=== PATIENT | female | born 1980 | race Caucasian/White ===

== ENCOUNTER 2023-02-09 07:43 | Outpatient (OUT) | payer OTHER, SELFPAY ==
--- NOTE | 2023-02-09 08:00 | US_ITS ---
Patient: GEORGES VEGAS Exam Date: 02/09/2023 : 1980 Gender:F Ordering : DR Thuan Nguyễn . Admission #: [id number] Family : DR Olman Torres . Order #: [id number] CLICK HERE TO VIEW EXAM RADIOLOGY REPORT PROCEDURE: MM TOMOSYNTHESIS DIAGNOSTIC RT, 02/09/2023, 08:02 US BREAST RT LIMITED, 02/09/2023, 08:38 COMPARISON: MG MAMM RT DIAG FU, 10/25/2022. MG MAMM SCREEN 3D FRENCH CAD, 10/19/2022. MG MAMM SCREEN 3D FRENCH CAD, 10/08/2021. INDICATIONS: Abnormal Mammogram Calculator Name NCI Breast Cancer Risk Assessment Tool 5 Year Breast Cancer Risk 0.40% Lifetime Breast Cancer Risk 7.30% Personal Breast Cancer No Personal Ovarian Cancer No Treatments None Family Cancers Mother with cervical cancer at age 25. LOCATION: [facility] BREAST COMPOSITION: Scattered areas fibroglandular density. FINDINGS: DIAGNOSTIC CATEGORY 2--BENIGN FINDING: RIGHT BREAST: Persistent asymmetric opacities within the posterior inferior breast with appearance similar to fibroglandular tissue. Ultrasound evaluation demonstrates slightly heterogeneous areas suggestive of fibroglandular tissue. No mass, cyst, or architectural distortion. I suspect residual fibroglandular tissue within atypical location, which is unchanged. Annual screening mammography is recommended. RECOMMENDATIONS: ROUTINE MAMMOGRAM AND CLINICAL EVALUATION IN 12 MONTHS. PLEASE NOTE: A NORMAL MAMMOGRAM DOES NOT EXCLUDE THE POSSIBILITY OF BREAST CANCER. A CLINICALLY SUSPICIOUS PALPABLE LUMP SHOULD BE BIOPSIED. Dictated by: Denver Cunningham M.D. on 02/10/2023 at 15:22 Approved by: Denver Cunningham M.D. on 02/10/2023 at 15:28
== END 2023-02-09 07:44 | disposition home or self-care (01) ==
LOC: MAMMO 07:48
PROVIDERS: PCP Family Medicine; Visit Provider Obstetrics & Gynecology
DX: R92.8 Other abnormal and inconclusive findings on diagnostic imaging of breast (principal); Z80.49 Family history of malignant neoplasm of other genital organs
CPT/HCPCS: 76642; 77065; G0279

== ENCOUNTER 2023-06-22 06:32 | Outpatient (OUT) | payer OTHER, SELFPAY ==
--- NOTE | 2023-06-22 06:37 | XR_ITS ---
[address] [address] Patient Name: GEORGES VEGAS MRN: [id number] date: 1980 Sex: F Assigned Patient Location: [facility] Current Patient Location: Accession/Order Number: [id number] Exam Date: 06/22/2023 06:48 Report Date: 06/23/2023 16:05 At the request of: UZAIR BORGES Procedure: XR ribs LT min 3V w CXR1V EXAMINATION: XR ribs LT min 3V w CXR1V HISTORY: Left-sided rib pain COMPARISON: None. TECHNIQUE: PA and AP chest x-rays along with 4 views of the left ribs FINDINGS: The lung parenchyma is free of consolidation or infiltrate. No pneumothorax or pleural effusion. The cardiac, mediastinal and hilar contours are normal. The visualized osseous structures exhibit no gross abnormality. XR/XR ribs LT min 3V w CXR1V IMPRESSION: No visualized abnormality Electronically authenticated by: WENCESLAO PENN Date: 06/23/2023 16:05
== END 2023-06-22 06:33 | disposition home or self-care (01) ==
PROVIDERS: PCP Family Medicine; Visit Provider Family Medicine
DX: R07.81 Pleurodynia (principal)
CPT/HCPCS: 71101

== ENCOUNTER 2023-12-20 18:39 | Outpatient (REF) | payer OTHER, SELFPAY ==
[2023-12-23 11:10] LABS: Age Gdln ACOG Testing Note (.); HPV Aptima Negative (Negative); IGP, Aptima HPV, rfx 16/18,45 Note (.)
== END 2023-12-20 18:40 | disposition home or self-care (01) ==
LOC: LAB 18:39
PROVIDERS: PCP Family Medicine; Visit Provider Obstetrics & Gynecology
DX: Z01.419 Encounter for gynecological examination (general) (routine) without abnormal findings (principal)
CPT/HCPCS: 87624; 88175

== ENCOUNTER 2023-12-22 11:13 | Outpatient (OUT) | payer OTHER, SELFPAY ==
--- NOTE | 2023-12-22 11:17 | MM_ITS ---
Patient Name: GEORGES VEGAS MR#: [id number] : 1980 Exam Date: 12/22/2023 Ordering Doctor: DR Thuan Nguyễn . RADIOLOGY REPORT PROCEDURE: MM TOMOSYNTHESIS SCREENING BI COMPARISON: MG MAMM SCREEN 3D FRENCH CAD, 10/19/2022. MG MAMM RT DIAG FU, 10/25/2022. MM TOMOSYNTHESIS DIAGNOSTIC RT, 02/09/2023. INDICATIONS: Screening Calculator Name NCI Breast Cancer Risk Assessment Tool 5 Year Breast Cancer Risk 0.50% Lifetime Breast Cancer Risk 7.20% Personal Breast Cancer No Personal Ovarian Cancer No Treatments None Family Cancers Mother with cervical cancer at age 25. LOCATION: [facility] BREAST COMPOSITION: There are scattered areas of fibroglandular density. FINDINGS: DIAGNOSTIC CATEGORY 2--BENIGN FINDING. NO CHANGE FROM COMPARISON. Scattered benign-appearing nodules are present. Scattered benign-appearing calcifications are present. Scattered benign-appearing lymph nodes are present. RIGHT BREAST: No significant suspicious finding. LEFT BREAST: No significant suspicious finding. RECOMMENDATIONS: ROUTINE MAMMOGRAM AND CLINICAL EVALUATION IN 12 MONTHS. PLEASE NOTE: A NORMAL MAMMOGRAM DOES NOT EXCLUDE THE POSSIBILITY OF BREAST CANCER. A CLINICALLY SUSPICIOUS PALPABLE LUMP SHOULD BE BIOPSIED. Dictated by: Mayo Canela MD on 12/22/2023 at 12:56 Approved by: Mayo Canela MD on 12/22/2023 at 13:19
== END 2023-12-22 11:14 | disposition home or self-care (01) ==
PROVIDERS: PCP Family Medicine; Visit Provider Obstetrics & Gynecology
DX: Z12.31 Encounter for screening mammogram for malignant neoplasm of breast (principal); Z80.8 Family history of malignant neoplasm of other organs or systems
CPT/HCPCS: 77063; 77067

== ENCOUNTER 2025-01-08 19:06 | Outpatient (REF) | payer OTHER, SELFPAY ==
[2025-01-14 16:08] LABS: Age Gdln ACOG Testing Note (.); IGP, Aptima HPV, rfx 16/18,45 Note (.)
== END 2025-01-08 19:07 | disposition home or self-care (01) ==
LOC: LAB 19:06
PROVIDERS: PCP Family Medicine; Visit Provider Physician Assistant
DX: Z01.419 Encounter for gynecological examination (general) (routine) without abnormal findings (principal)
CPT/HCPCS: 87624; 88175

== ENCOUNTER 2025-01-17 10:20 | Outpatient (OUT) | payer OTHER, SELFPAY ==
--- NOTE | 2025-01-17 11:05 | MM_ITS ---
Patient Name: GEORGES VEGAS MR#: [id number] : 1980 Exam Date: 01/17/2025 Ordering Doctor: LESLIE HANSEN . RADIOLOGY REPORT PROCEDURE: MM TOMOSYNTHESIS SCREENING BI COMPARISON: MM TOMOSYNTHESIS SCREENING BI, 12/22/2023. MM TOMOSYNTHESIS DIAGNOSTIC RT, 02/09/2023. MG MAMM RT DIAG FU, 10/25/2022. MG MAMM SCREEN 3D FRENCH CAD, 10/19/2022. INDICATIONS: Screening Calculator Name NCI Breast Cancer Risk Assessment Tool 5 Year Breast Cancer Risk 0.40% Lifetime Breast Cancer Risk 5.00% Personal Breast Cancer No Personal Ovarian Cancer No Treatments Stem cell transplant & injection Family Cancers Mother with cervical cancer at age 25; Aunt-maternal with female cancer at age 25. LOCATION: [facility] BREAST COMPOSITION: There are scattered areas of fibroglandular density. FINDINGS: RIGHT BREAST: No significant suspicious finding. LEFT BREAST: No significant suspicious finding. DIAGNOSTIC CATEGORY 1--NEGATIVE. RECOMMENDATIONS: ROUTINE MAMMOGRAM AND CLINICAL EVALUATION IN 12 MONTHS. PLEASE NOTE: A NORMAL MAMMOGRAM DOES NOT EXCLUDE THE POSSIBILITY OF BREAST CANCER. A CLINICALLY SUSPICIOUS PALPABLE LUMP SHOULD BE BIOPSIED. Dictated by: Jomar Douglas DO on 01/17/2025 at 13:53 Approved by: Jomar Douglas DO on 01/17/2025 at 13:54
== END 2025-01-17 10:21 | disposition home or self-care (01) ==
LOC: MAMMO 10:21
PROVIDERS: PCP Family Medicine; Visit Provider Physician Assistant
DX: Z12.31 Encounter for screening mammogram for malignant neoplasm of breast (principal); Z80.8 Family history of malignant neoplasm of other organs or systems
CPT/HCPCS: 77063; 77067